=== PATIENT | female | born 2000 | race Caucasian/White ===

== ENCOUNTER 2022-12-25 22:17 | Day surgery (SDC) | payer BC ==
[2022-12-25] MEDS ORDERED: hydrALAZINE 20 MG/ML VIAL SLOW IVP PRN (23:10)
== END 2022-12-26 00:40 | disposition home or self-care (01) ==
LOC: CSHLD/OP 22:17
PROVIDERS: ATTEND Obstetrics & Gynecology
DX: O36.8130 Decreased fetal movements, third trimester, not applicable or unspecified (principal); O47.02 False labor before 37 completed weeks of gestation, second trimester; O99.513 Diseases of the respiratory system complicating pregnancy, third trimester; J45.909 Unspecified asthma, uncomplicated; Z79.899 Other long term (current) drug therapy; Z88.1 Allergy status to other antibiotic agents; Z88.5 Allergy status to narcotic agent; Z3A.29 29 weeks gestation of pregnancy
CPT/HCPCS: 76815; 99282

== ENCOUNTER 2023-02-04 17:57 | Day surgery (SDC) | payer BC ==
[2023-02-04 18:32] VITALS: BMI 33.4
[2023-02-04] MEDS ORDERED: hydrALAZINE 20 MG/ML VIAL SLOW IVP PRN (18:56)
[2023-02-04 19:47] LABS: Bilirubin Neg (Negative); Blood, Urine Negative (Negative); Clarity Slightly Cloudy (Clear); Glucose, Urine (Dipstick) 50 mg/dL (Negative); Ketone, Urine Negative (Negative); Leukocyte 25 (Negative); Nitrite Negative (Negative); Protein, Urine (Dipstick) Negative (Neg-Trace); Specific Gravity, Urine 1.025 (1.005-1.030); Urobilinogen Normal mg/dL (Less than 2); pH, Urine 6.5 (5.0-9.0)
[2023-02-04 20:00] LABS: Bacteria/HPF 2+ HPF (None Seen); CAUTI Indications for Culture Pregnancy; Creatinine, Urine 103.94 mg/dL (47-110); Mucous/LPF Rare LPF (<2+); RBC/HPF 0-3 HPF (0-3); Squamous Epithelial 0-3 HPF (0-3); WBC/HPF 0-3 HPF (0-3)
[2023-02-04 20:01] LABS: Urine Culture Reflex Yes Yes
[2023-02-04 20:05] LABS: #Eosinphils 0.1 10x3/uL (0.0-0.5); #Monocytes 0.8 10x3/uL (0.0-1.1); #Neutrophils 6.2 10x3/uL (1.5-8.4); %Basophils 0.1 % (0.0-2.0); %Eosinophils 1.4 % (0.0-6.0); %Lymphocytes 23.4 % (18.0-47.0); %Monocytes 8.5 % (0.0-10.0); %Neutrophils 66.3 % (40.0-75.0); Hematocrit 31.9 % (34.9-44.5); Hemoglobin 10.8 g/dL (12.0-15.5); Mean Corpuscular HGB CONC 33.9 g/dL (32.0-36.0); Mean Corpuscular Hemoglobin 30.6 pg (27.0-33.0); Mean Corpuscular Volume 90.4 fl (81.6-98.3); Mean Platelet Volume 11.8 fl (7.4-10.4); Platelet Count 172 10x3/uL (150-450); RBC Distribution Width 13.3 % (11.5-14.5); Red Blood Cell (RBC) Count 3.53 10x6/uL (3.90-5.03); White Blood Cell (WBC) Count 9.3 10x3/uL (3.5-10.5)
[2023-02-04 20:17] LABS: ALT (SGPT) 8 U/L (8-55); AST (SGOT) 13 U/L (5-34); Albumin 3.4 g/dL (3.5-5.0); Alkaline Phosphatase 80 U/L (40-110); Anion Gap 11 mmol/L (10-20); BUN (Urea Nitrogen) 6 mg/dL (7.0-18.7); Bilirubin, Total 0.3 mg/dL (0.2-1.2); Calc. Creatinine Clearance 197 mL/min (70-130); Calcium 8.8 mg/dL (7.8-10.44); Carbon Dioxide 24 mmol/L (22-29); Chloride 106 mmol/L (98-107); Estimated GFR 127; Globulin 2.6 g/dL (2.4-3.5); Glucose 87 mg/dL (70-105); Potassium 3.7 mmol/L (3.5-5.1); Sodium 137 mmol/L (136-145)
[2023-02-04 20:34] LABS: Fetal Membranes Rupture No Membranes Rupture (No Rupture)
[2023-02-04] MEDS ORDERED: Metoclopramide HCl 10 MG/2 ML VIAL IM SCH (20:45)
[2023-02-04] MEDS ORDERED: diphenhydrAMINE 50 MG/ML VIAL IM SCH (20:45)
[2023-02-05 15:32] LABS: Chlamydia by PCR, EndoCx Swab Not Detected (NotDetected); GC by PCR, EndoCx Swab Not Detected (NotDetected)
== END 2023-02-04 21:45 | disposition home or self-care (01) ==
LOC: CSHLD/OP 17:57
PROVIDERS: ATTEND Obstetrics & Gynecology
DX: O99.891 Other specified diseases and conditions complicating pregnancy (principal); H53.8 Other visual disturbances; R51.9 Headache, unspecified; N89.8 Other specified noninflammatory disorders of vagina; O99.513 Diseases of the respiratory system complicating pregnancy, third trimester; J45.909 Unspecified asthma, uncomplicated; Z3A.35 35 weeks gestation of pregnancy; Z88.1 Allergy status to other antibiotic agents; Z88.6 Allergy status to analgesic agent; Z91.040 Latex allergy status
CPT/HCPCS: 36415; 80053; 81001; 82570; 84112; 84156; 85025; 87086; 87480; 87491; 87510; 87591; 87660; J1200; J2765

== ENCOUNTER 2023-03-10 05:30 | Inpatient (IN) | payer BC ==
[2023-03-10] MEDS ORDERED: Tranexamic Acid 1,000 MG/10 ML VIAL IVP PRN (06:59)
[2023-03-10] MEDS ORDERED: Ibuprofen 800 MG TAB PO PRN (06:59)
[2023-03-10] MEDS ORDERED: Diphenoxylate HCl/Atropine Tablet PO PRN ×2 (06:59)
[2023-03-10] MEDS ORDERED: Misoprostol 200 MCG TAB PR PRN (06:59)
[2023-03-10] MEDS ORDERED: Acetaminophen 500 MG TAB PO PRN (06:59)
[2023-03-10] MEDS ORDERED: Carboprost 250 MCG/ML AMP IM PRN (06:59)
[2023-03-10] MEDS ORDERED: Lidocaine 1% (PF) 30 ML VIAL SC PRN (06:59)
[2023-03-10] MEDS ORDERED: fentaNYL 50 mcg/mL 1 mL Vial SLOW IVP PRN (06:59)
[2023-03-10] MEDS ORDERED: HYDROcodone/Acetaminophen 5/325 mg Tablet PO PRN ×2 (06:59)
[2023-03-10] MEDS ORDERED: hydrALAZINE 20 MG/ML VIAL SLOW IVP PRN (06:59)
[2023-03-10] MEDS ORDERED: Methylergonovine 0.2 MG/ML VIAL IM PRN (06:59)
[2023-03-10] MEDS ORDERED: Promethazine HCl 25 MG/ML VIAL IM PRN (06:59)
[2023-03-10] MEDS ORDERED: Oxytocin 30 units/NS 500 ML 500 ML IV SCH ×2 (07:00)
[2023-03-10 19:40] VITALS: BMI 34.7
[2023-03-10 21:08] LABS: Hematocrit 33.5 % (34.9-44.5); Hemoglobin 11.6 g/dL (12.0-15.5); Mean Corpuscular HGB CONC 34.6 g/dL (32.0-36.0); Mean Corpuscular Hemoglobin 30.4 pg (27.0-33.0); Mean Corpuscular Volume 87.9 fl (81.6-98.3); Mean Platelet Volume 12.2 fl (7.4-10.4); Platelet Count 175 10x3/uL (150-450); RBC Distribution Width 13.2 % (11.5-14.5); Red Blood Cell (RBC) Count 3.81 10x6/uL (3.90-5.03); White Blood Cell (WBC) Count 9.7 10x3/uL (3.5-10.5)
[2023-03-10] MEDS: Lactated Ringer's 1,000 ML IV SCH (21:24)
[2023-03-10] MEDS: Misoprostol 100 MCG TAB VAG SCH ×3 (21:24→21:47)
[2023-03-10 21:33] LABS: HBSAg Index 0.17 S/CO (0-0.99); Hep B Surf Ag - L&D Non-Reactive S/CO (NonReactive)
[2023-03-10 21:33] LABS: Syphilis Antibody Nonreactive (Nonreactive); Syphilis Antibody Index 0.05 S/CO (<1.00 Non-Reactive)
[2023-03-11] MEDS ORDERED: Calcium Carbonate 500 MG ChewTAB PO SCH (01:45)
[2023-03-11] MEDS: Misoprostol 100 MCG TAB VAG SCH ×6 (02:35→19:31)
[2023-03-11] MEDS ORDERED: Naloxone HCl 0.4 mg/ml Vial IVP PRN ×2 (10:04)
[2023-03-11] MEDS ORDERED: diphenhydrAMINE 50 MG/ML VIAL IVP PRN (10:04)
[2023-03-11] MEDS ORDERED: Lactated Ringer's 500 ML IV PRN (10:04)
[2023-03-11] MEDS ORDERED: ePHEDrine Sulfate 50 MG/10 ML VIAL SLOW IVP PRN (10:04)
[2023-03-11] MEDS ORDERED: Promethazine HCl 25 MG/ML VIAL IM PRN (10:04)
[2023-03-11] MEDS ORDERED: Ondansetron PF 4 MG/2 ML Vial IVP PRN (10:04)
[2023-03-11] MEDS ORDERED: Moisturizing Cream (Eucerin) 113 GM JAR TOP PRN (10:04)
[2023-03-11] MEDS ORDERED: Acetaminophen 325 MG TAB PO PRN (10:04)
[2023-03-11] MEDS ORDERED: fentaNYL 2 mcg/Ropivacaine 0.2% Epidural 100 ML CADD EPIDURAL SCH (10:15)
[2023-03-11] MEDS ORDERED: Communication Order-Pharmacy FS SCH (10:15)
[2023-03-11] MEDS: Ondansetron PF 4 MG/2 ML Vial IVP PRN ×2 (10:28→17:04)
[2023-03-11] MEDS: Lactated Ringer's 1,000 ML IV SCH ×3 (10:34→19:31)
[2023-03-11] MEDS ORDERED: fentaNYL/Ropivacaine Epidural 100 ML ONE (10:44)
[2023-03-11] MEDS ORDERED: hydrALAZINE 20 MG/ML VIAL SLOW IVP PRN (18:52)
[2023-03-11] MEDS ORDERED: Bisacodyl 10 MG SUPP PR PRN (18:52)
[2023-03-11] MEDS ORDERED: Preparation H Ointment 28 GM TUBE PR PRN (18:52)
[2023-03-11] MEDS ORDERED: diphenhydrAMINE 25 MG CAP PO PRN (18:52)
[2023-03-11] MEDS ORDERED: Lanolin Ointment 7 GM TUBE TOP PRN (18:52)
[2023-03-11] MEDS ORDERED: Boostrix 0.5 ML (Tdap) VIAL (>/=7 yrs of age) IM ONE (18:52)
[2023-03-11] MEDS ORDERED: Milk Of Magnesia 30 ML UDCUP PO PRN (18:52)
[2023-03-11] MEDS ORDERED: Benzocaine-Menthol 82.5 ML CAN TOP PRN (18:52)
[2023-03-11] MEDS: Ibuprofen 800 MG TAB PO SCH (21:42)
[2023-03-11] MEDS: Docusate 100 MG CAP PO SCH (21:43)
[2023-03-11] MEDS: traMADol HCl 50 MG TAB PO PRN (22:58)
[2023-03-12] MEDS: Ibuprofen 800 MG TAB PO SCH ×3 (06:20→22:00)
[2023-03-12] MEDS: Prenatal Vitamin 1 TAB PO SCH (09:55)
[2023-03-12] MEDS: Docusate 100 MG CAP PO SCH ×2 (09:55→22:00)
[2023-03-12] MEDS: Ferrous Sulfate 325 MG TAB PO SCH (09:56)
[2023-03-12] MEDS: traMADol HCl 50 MG TAB PO PRN (14:58)
[2023-03-12] MEDS ORDERED: Fluconazole 100 MG TAB PO SCH (15:45)
[2023-03-13] MEDS: Ibuprofen 800 MG TAB PO SCH (05:56)
[2023-03-13] MEDS: Ferrous Sulfate 325 MG TAB PO SCH (07:18)
[2023-03-13 07:33] VITALS: BP 115/79; TEMP 97.9
[2023-03-13] MEDS: Prenatal Vitamin 1 TAB PO SCH (10:05)
[2023-03-13] MEDS: Docusate 100 MG CAP PO SCH (10:05)
== END 2023-03-13 11:45 | disposition home or self-care (01) | DRG 807 ==
LOC: CSHLD 19:12 → CSHPP 03-11 21:20
PROVIDERS: ADMIT Obstetrics & Gynecology; ATTEND Obstetrics & Gynecology
PROC: 10E0XZZ Delivery of Products of Conception, External Approach (ICD-10-PCS; principal; 2023-03-11)
PROC: 0HQ9XZZ Repair Perineum Skin, External Approach (ICD-10-PCS; 2023-03-11)
DX: O48.0 Post-term pregnancy (principal); Z37.0 Single live birth; Z3A.40 40 weeks gestation of pregnancy; O70.0 First degree perineal laceration during delivery; Z98.890 Other specified postprocedural states; Z91.040 Latex allergy status; Z88.1 Allergy status to other antibiotic agents; Z88.5 Allergy status to narcotic agent
CPT/HCPCS: 36415; 51702; 85027; 86780; 86850; 86900; 86901; 87340; J2405; J7120